=== PATIENT | female | born 1975 | race Caucasian/White ===

== ENCOUNTER → 2016-07-21 | Outpatient (CLI) | payer OTHER ==
--- NOTE | ~2016-07-21 | US85 ---
[facility] A Service of [facility] & [facility] RADIOLOGY TEXT RESULTS PATIENT: ASHELY BACON LOCATION: CNIV : 71 UNIT #: [id number] AGE: [address]: Harry Pleitez MD SEX: F ORDER DR: [id number] [facility] [address] [place], [place] [address] [id number] O MR#: [id number] Acc #: [id number] NAME: ASHELY BACON : 1975 SEX: F STUDY DATE/TIME: 07/21/2016 15:58 UNIT: CNIV ROOM: STUDY DESCRIPTION: [facility] [email or web address] [facility] or [facility] St[facility] Attending Physician: Harry Pleitez M.D. Referring Physician: Harry Pleitez M.D. Ordering Physician: Harry Pleitez M.D. Primary Care Physician: Harry Pleitez M.D. MEDICAL IMAGING REPORT This report is preliminary unless electronic signature is present EXAM Right lower extremity venous duplex, 07/21/2016. HISTORY Right lower extremity edema for 4 days. Evaluate for deep vein thrombosis. Right lower extremity pain. TECHNIQUE Venous ultrasound examination of the right lower extremity was performed using grayscale, spectral Doppler and color flow Doppler imaging. FINDINGS The examination is negative. There is no evidence of right lower extremity deep venous thrombus from the groin to the lower calf. Visualized greater saphenous vein is also patent. IMPRESSION Negative examination. No evidence of right lower extremity deep venous thrombosis. Dictated by... Jordi Coleman M.D. THIS IS AN ELECTRONICALLY VERIFIED REPORT Jordi Coleman M.D. at 07/22/2016 8:09 AM ULISES/glenis TD: 07/21/2016 17:18 JOB #: [id number] MEDICAL IMAGING REPORT [facility] A Service of [facility] & [facility] RADIOLOGY TEXT RESULTS PATIENT: ASHELY BACON LOCATION: CNIV : 71 UNIT #: [id number] AGE: [address]: Harry Pleitez MD SEX: F ORDER DR: Page 1 of 1 COPY
== END | disposition home or self-care (01) ==
LOC: CNIV 15:40
DX: R60.0 Localized edema (principal); M79.661 Pain in right lower leg
CPT/HCPCS: 93971